=== PATIENT | male | born 1965 | race Caucasian/White ===

== ENCOUNTER 2021-04-13 14:30 | Outpatient (CLI) | payer MEDICARE, SELFPAY ==
--- NOTE | ~2021-04-13 | CT_ITS ---
EXAMINATION: CT lung screening DATE: 04/13/2021 15:16 INDICATION: Z72.0 - Tobacco use TECHNIQUE: Computed tomography (CT) of the chest was performed without intravenous contrast. Addition al 3D reconstructions utilizing coronal maximum intensity projection (MIP) were performed. Automated exposure control and iterative reconstruction technique were employed. The dose-length product was 81 .85 mGy-cm. COMPARISON: None FINDINGS: Moderate upper lobe predominant emphysema. A few thin linear bands of discoid atelectasis in the righ t upper, right middle and bilateral lower lobes. Couple tiny calcified nodules in the lateral upper l obes. No other suspicious pulmonary nodules. No pneumonia, pulmonary edema or pleural effusion. Heart size is normal. No pericardial effusion. Thoracic aorta is normal in caliber. No pathologically enla rged thoracic lymphadenopathy. 1.7 cm cyst at the upper pole of the right kidney. Suture line along w hat is likely the transverse colon. Moderate thoracic spondylosis with chronic appearing mild anterio r wedging of a few mid and lower thoracic vertebral bodies. IMPRESSION: 1. Lung-RADS category 1: Negative. Continue annual screening with noncontrast low-dose chest CT in 12 months. 2. Moderate emphysema. Reviewed, dictated and finalized at location B. IMPRESSION: 1. Lung-RADS category 1: Negative. Continue annual screening with noncontrast l ow-dose chest CT in 12 months. 2. Moderate emphysema.
== END 2021-04-13 14:31 | disposition home or self-care (01) ==
PROVIDERS: PCP Internal Medicine; Visit Provider Nurse Practitioner
DX: Z12.2 Encounter for screening for malignant neoplasm of respiratory organs (principal); Z87.891 Personal history of nicotine dependence; J43.9 Emphysema, unspecified
CPT/HCPCS: 71271

== ENCOUNTER → 2022-10-25 08:41 | Outpatient (CLI) | payer MEDICARE, SELFPAY ==
--- NOTE | ~2022-10-25 | XR_ITS ---
XR thoracic spine 3V DATE: 10/25/2022 09:01 INDICATION: Mid back pain. No recent injury. TECHNIQUE: AP, lateral, swimmer views COMPARISON: 04/13/2021 CT lung screening FINDINGS: There is chronic mild loss of height and anterior wedging of T9, stable since 04/13/2021. Minimal levoscoliosis of the thoracic spine. No recent fracture or dislocation or bone destruction. T he thoracic pedicles are intact. No paraspinal soft tissue thickening. Multilevel degenerative disc disease of the cervical spine IMPRESSION: Degenerative changes of cervical and thoracic spine Chronic mild anterior wedging and loss of height of T9, stable since 04/13/2021 Reviewed, dictated and finalized at location L. [facility]
--- NOTE | ~2022-10-25 | XR_ITS ---
EXAM: XR knee RT 3V DATE: 10/25/2022 09:00 HISTORY: no injury medial right knee pain . COMPARISON: None available. FINDINGS: Normal mineralization. No fracture or dislocation. No lytic or blastic lesion. Mild medial joint space narrowing, with subchondral sclerosis. Medial, patellofemoral, and tibial spine osteophy tosis. No erosion or periosteal change. Soft tissues within normal limits. Small volume joint fluid. IMPRESSION: Mild right knee osteoarthritis, most pronounced in the medial compartment. Small right kn ee joint effusion. Reviewed, dictated and finalized at location K. [facility] IMPRESSION: Mild right knee osteoarthritis, most pronounced in the medial odessa rtment. Small right knee joint effusion.
== END ==
PROVIDERS: PCP Internal Medicine; Visit Provider Clinical Nurse Specialist
DX: M17.11 Unilateral primary osteoarthritis, right knee (principal); M51.34 Other intervertebral disc degeneration, thoracic region
CPT/HCPCS: 72072; 73562

== ENCOUNTER 2022-11-02 08:14 | Outpatient (CLI) | payer MEDICARE, SELFPAY ==
--- NOTE | ~2022-11-02 | MR_ITS ---
EXAMINATION: MR thoracic spine wo con DATE: 11/02/2022 08:50 INDICATION: Chronic thoracic back pain with more recent mid back pain radiating down the back post fa ll 3 months prior TECHNIQUE: Magnetic resonance imaging (MRI) of the thoracic spine was performed without intravenous c ontrast. Sagittal localizer T1-weighted FSE of the cervicothoracic spine was obtained. Thoracic spine sequences included sagittal T2-weighted FSE, sagittal T1-weighted SE, Sagittal T2-weighted FS FSE, a nd axial T2-weighted FSE. COMPARISON: None FINDINGS: Alignment is normal.Mild anterior wedging with <20% anterior vertebral body height loss at T7-T9 and at T11. There is linear low signal intensity with surrounding edema consistent with a relatively rece nt compression fracture underlying the anterior half of the superior endplate of T9. Multiple Schmorl 's nodes throughout the thoracic spine at several levels with associated fibrofatty degenerative endp late changes. Moderate disc height loss at T6-T7, T9-T10 and T10-T11. Mild disc height loss at T3-T4, T4-T5, T7-T8 and T8-T9. Annular fissure and disc bulges resulting in mild central canal stenosis at C7-T1. Significant smaller disc protrusions at several levels in the upper to mid thoracic spine with out significant associated central canal stenosis. Multilevel bilateral mild thoracic facet osteoarth ritis which continues to mild neural foraminal stenosis bilaterally at T8-T9 through T10-T11 and mini ghazala on the right at T11-T12. There is normal spinal cord signal. The conus terminates at L1. Emphys giovani. Bullous changes at the apices. A couple subcentimeter cysts in the right hepatic lobe and right kidney. Paravertebral soft tissues are otherwise unremarkable. IMPRESSION: 1. Recent compression fracture underlying the anterior superior endplate of T9 with <20% anterior fanny tebral body height loss. 2. Moderate thoracic spondylosis with a few additional chronic mild compression fractures. Reviewed, dictated and finalized at location A. IMPRESSION: 1. Recent compression fracture underlying the anterior superior endplate of T9 with <20% anterior vertebral body height loss. 2. Moderate thoracic spondylosis with a few additional chronic mild compression fractures.
== END 2022-11-02 08:15 ==
LOC: GOSHIMG 08:15
PROVIDERS: PCP Internal Medicine; Visit Provider Clinical Nurse Specialist
DX: M47.894 Other spondylosis, thoracic region (principal); S22.070A Wedge compression fracture of T9-T10 vertebra, initial encounter for closed fracture; X58.XXXA Exposure to other specified factors, initial encounter
CPT/HCPCS: 72146

== ENCOUNTER 2024-06-18 00:06 | Emergency (ER) | payer MEDICARE, SELFPAY ==
[2024-06-18 00:06] VITALS: BP 107/60; PULSE 83; RESP 16; TEMP 36.4; O2SAT 98
[2024-06-18 04:28] VITALS: BP 120/80; PULSE 78; RESP 14; O2SAT 100
--- NOTE | 2024-06-18 05:26 | ED.GENADULT ---
HPI - General Adult General Chief complaint: Epistaxis Stated complaint: bilateral nose bleed Time Seen by Provider: 06/18/24 05:19 History of Present Illness HPI narrative: Patient is a 58-year-old gentleman who presents emergency department with chief complaint of nose bleeds. Patient reports morning around 5:00 a.m. in the morning started having episodes of bleeding from his nostrils. Patient reports no trauma reports that he does not use CPAP reports he is not on any blood thinners. The patient reports the bleeding has stopped since he has arrived to the emergency department. Related Data Home Medications Medication Instructions Recorded Confirmed cannabidiol 100 mg/mL oral solution PO ONCE 09/30/20 10/25/22 Allergies Allergy/AdvReac Type Severity Reaction Status Date / Time codeine Allergy Unknown Vomiting Verified 12/05/22 09:53 Review of Systems Review of Systems: A 10 system review of systems was completed on the patient and is negative except for what is stated in the HPI. Nursing and ancillary documentation was reviewed. [facility] Past Medical History Medical History Crohn's disease Elevated PSA Hx of avascular necrosis of capital femoral epiphysis Surgical History Surgical History History of right hip replacement Family History Family History Grandparent Family history of malignant neoplasm of testis Social History Social History Smoking status: Heavy tobacco smoker Alcohol intake: current Lack of Transportation: No Lack of Food: Never True Current Housing: I Have Housing Concerned About Future Housing: No Difficulty Paying Gas/Electric Bills: No Difficulty Paying for Meds: No Currently Unemployed: No Education: High School Diploma/GED Difficulty w/ Childcare or Family Care: No Exam Narrative: GENERAL: Well-appearing, well-nourished, and in no acute distress. HEAD: Normocephalic, atraumatic. EYES: PERRLA and EOMI. ENT: Nares clear, no rhinorrhea or epistaxis. Mucous membranes moist. No active bleeding in the nostrils NECK: Supple. CHEST: Clear to auscultation. No respiratory distress. HEART: Regular rate and rhythm. No murmur heard. Normal peripheral pulses. ABDOMEN: Soft, nontender, nondistended, normal active bowel sounds. EXTREMITIES: Normal range of motion. No edema. SKIN: Warm, dry, no rash. NEURO: No focal deficits. Alert and oriented x3. PSYCH: Normal mood and affect. Course Vital Signs Vital signs: Vital Signs Temperature 36.4 C L 06/18/24 00:06 Pulse Rate 83 06/18/24 00:06 Respiratory Rate 16 06/18/24 00:06 Blood Pressure 107/60 06/18/24 00:06 Pulse Oximetry 98 06/18/24 00:06 Oxygen Delivery Room Air 06/18/24 00:06 Temperature 36.4 C L 06/18/24 00:06 Pulse Rate 78 06/18/24 04:28 Respiratory Rate 14 06/18/24 04:28 Blood Pressure 120/80 06/18/24 04:28 Pulse Oximetry 100 06/18/24 04:28 Oxygen Delivery Room Air 06/18/24 00:06 Medical Decision Making MDM Narrative Medical decision making narrative: Differential diagnosis includes epistaxis, hypertension, On exam the patient had no active bleeding at this time and no site that needed to be car breast. This time packing was not required the patient was given a spray of phenylephrine in each nostril at instructed to methods to control epistaxis if it develops again and also methods to reduce the chance of bleeding at home. Vital Signs Vital Signs: Vital Signs Temperature 36.4 C L 06/18/24 00:06 Pulse Rate 83 06/18/24 00:06 Respiratory Rate 16 06/18/24 00:06 Blood Pressure 107/60 06/18/24 00:06 Pulse Oximetry 98 06/18/24 00:06 Oxygen Delivery Room Air 06/18/24 00:06 Temperature 36.4 C L 06/18/24 00:06 Pulse Rate 78 06/18/24 04:28 Respiratory Rate 14 06/18/24 04:28 Blood Pressure 120/80 06/18/24 04:28 Pulse Oximetry 100 06/18/24 04:28 Oxygen Delivery Room Air 06/18/24 00:06 Discharge Plan Discharge Clinical Impression: Epistaxis Patient Disposition: Home, Self-Care Condition: Stable Instructions: Antibiotic Form, Nosebleed (ED) Prescriptions: No Action cannabidiol 100 mg/mL solution PO ONCE Follow-up/Referrals: Raghu Acosta DO [Primary Care Provider] - Time of Disposition: 05:29
[2024-06-18] MEDS: PHENYLEPHRINE 1% NA SPR (*BKC) 15 ML BTL 1 SPRAY NASAL (05:46)
== END 2024-06-18 06:26 | disposition home or self-care (01) ==
LOC: ANHED 05:35
PROVIDERS: Emergency Provider Emergency Medicine; PCP Internal Medicine
DX: R04.0 Epistaxis (principal); K50.90 Crohn's disease, unspecified, without complications; Z96.641 Presence of right artificial hip joint; F17.200 Nicotine dependence, unspecified, uncomplicated
CPT/HCPCS: 99283; A9270

== ENCOUNTER 2024-06-20 13:14 | Emergency (ER) | payer MEDICARE, SELFPAY ==
[2024-06-20 13:28] VITALS: BP 100/74; PULSE 100; RESP 18; TEMP 36.7; O2SAT 100
--- NOTE | 2024-06-20 15:31 | ED.EPISTAXIS ---
HPI - Epistaxis General Chief complaint: Epistaxis <Melida Cote PA-C - Last Filed: 06/21/24 11:48> Stated complaint: epistaxis <Melida Cote PA-C - Last Filed: 06/21/24 11:48> Time Seen by Provider: 06/20/24 15:31 <Melida Cote PA-C - Last Filed: 06/21/24 11:48> Focused HPI: This is a 58 year old male that presents to the ER for nosebleed ongoing since last night. Reports he has been having trouble with this over the last couple of days intermittently. Was seen in the ER here for this and it had stopped before he was evaluated. No blood thinners. GENERAL: Well-appearing, well-nourished, and in no acute distress. HEAD: Normocephalic, atraumatic. CHEST: Clear to auscultation. ?No respiratory distress. HEART: Regular rate and rhythm.? NEURO: ?Alert and oriented x3. Patient screened in triage and initial orders placed.? ?Additional care and disposition to be based upon?diagnostic testing and treatment. <Melida Cote PA-C - Last Filed: 06/21/24 11:48> History of Present Illness HPI Narrative: 58-year-old male presenting with nosebleed. States that he was here few days ago with a nose bleed. His bleeding stopped and he was able to go home. He called his PCP to try to get an appointment with an Ear Nose Throat specialist but they told him that there ENT is gone right now. Last night the bleeding reoccurred. States that it will improve temporarily with pressure but then it comes back. He is concerned that he has lost too much blood. No recent trauma. Not on blood thinners. <Verenice Marrero MD - Last Filed: 06/24/24 16:52> Related Data Home medications: Home Medications Medication Instructions Recorded Confirmed cannabidiol 100 mg/mL oral solution PO ONCE 09/30/20 10/25/22 <Melida Cote PA-C - Last Filed: 06/21/24 11:48> Allergies/adverse reactions: Allergies Allergy/AdvReac Type Severity Reaction Status Date / Time codeine Allergy Unknown Vomiting Verified 12/05/22 09:53 <Melida Cote PA-C - Last Filed: 06/21/24 11:48> Review of Systems Review of Systems: All systems reviewed & are unremarkable except as noted in HPI and below <Verenice Marrero MD - Last Filed: 06/24/24 16:52> [facility] Past Medical History Medical History: Medical History Crohn's disease Elevated PSA Hx of avascular necrosis of capital femoral epiphysis <Melida Cote PA-C - Last Filed: 06/21/24 11:48> Surgical History Surgical History: Surgical History History of right hip replacement <Melida Cote PA-C - Last Filed: 06/21/24 11:48> Family History Family History: Family History Grandparent Family history of malignant neoplasm of testis <Melida Cote PA-C - Last Filed: 06/21/24 11:48> Social History Social History: Social History Smoking status: Heavy tobacco smoker Alcohol intake: current Lack of Transportation: No Lack of Food: Never True Current Housing: I Have Housing Concerned About Future Housing: No Difficulty Paying Gas/Electric Bills: No Difficulty Paying for Meds: No Currently Unemployed: No Education: High School Diploma/GED Difficulty w/ Childcare or Family Care: No <Melida Cote PA-C - Last Filed: 06/21/24 11:48> Exam Narrative: GENERAL: Well-appearing, In no acute distress, pleasant cooperative HEAD: Normocephalic, atraumatic. EYES: PERRLA and EOMI. ENT: Mucous membranes moist. no active epistaxis, nasal mucosa is erythematous bilaterally NECK: Supple. CHEST: No respiratory distress. HEART: Regular rate and rhythm EXTREMITIES: Normal range of motion SKIN: Warm, dry, no rash. NEURO: Alert and oriented x3. PSYCH: Normal mood and affect. <Verenice Marrero MD - Last Filed: 06/24/24 16:52> Course Vital Signs Vital signs: Vital Signs Temperature 98.1 F 06/20/24 13:28 Pulse Rate 100 06/20/24 13:28 Respiratory Rate 18 06/20/24 13:28 Blood Pressure 100/74 06/20/24 13:28 Pulse Oximetry 100 06/20/24 13:28 Temperature 98.2 F 06/20/24 20:09 Pulse Rate 71 06/20/24 20:09 Respiratory Rate 15 06/20/24 20:09 Blood Pressure 130/76 06/20/24 20:09 Pulse Oximetry 98 06/20/24 20:09 <Melida Cote PA-C - Last Filed: 06/21/24 11:48> Vital Signs Temperature 98.1 F 06/20/24 13:28 Pulse Rate 100 06/20/24 13:28 Respiratory Rate 18 06/20/24 13:28 Blood Pressure 100/74 06/20/24 13:28 Pulse Oximetry 100 06/20/24 13:28 Temperature 98.2 F 06/20/24 20:09 Pulse Rate 71 06/20/24 20:09 Respiratory Rate 15 06/20/24 20:09 Blood Pressure 130/76 06/20/24 20:09 Pulse Oximetry 98 06/20/24 20:09 <Verenice Marrero MD - Last Filed: 06/24/24 16:52> MDM - Epistaxis MDM Narrative Medical decision making narrative: 58-year-old male presenting with epistaxis. Vitals are stable. Exam remarkable for the above. Both of his nares have been packed with Afrin-soaked cotton balls prior to my evaluation. I removed these in his epistaxis has resolved. Blood work without significant abnormalities. He is not significantly anemic. He has been observed for several hours and has not had recurrence of epistaxis. He has Afrin at home, advised that he not use this longer than 3 days total. Advised that he start using some [place] spray to keep his nasal mucosa moist. Recommend close ENT follow-up. Appropriate return precautions given. Patient is agreeable this plan. Discharged in stable condition. <Verenice Marrero MD - Last Filed: 06/24/24 16:52> Differential Diagnosis Differential diagnosis: Likely anterior epistaxis and posterior epistaxis <Verenice Marrero MD - Last Filed: 06/24/24 16:52> Medical Records Attestation: I reviewed the patient's medical records. <Verenice Marrero MD - Last Filed: 06/24/24 16:52> Lab Data Attestation: I reviewed the patient's lab results. <Verenice Marrero MD - Last Filed: 06/24/24 16:52> Result diagrams: 06/20/24 15:46 <Melida Cote PA-C - Last Filed: 06/21/24 11:48> Labs: Lab Results 06/20/24 Range/Units 15:46 WBC 8.8 (4.5-10.0) K/mm3 RBC 3.85 L (4.6-6.20) M/mm3 Hgb 13.1 L (14.0-18.0) g/dL Hct 38.3 L (42.0-52.0) % MCV 99.5 (80-100) fl MCH 34.0 (26-34) pg MCHC 34.2 (32-36) g/dl RDW 12.4 (11.5-14.5) % Plt Count 167 (150-375) k/mm3 MPV 10.6 H (7.4-10.4) fl Immature Gran % (Auto) 0.6 H (0-0.5) % Neut % (Auto) 68.0 (45.5-73.1) % Lymph % (Auto) 24.5 (18.3-44.2) % [place] % (Auto) 6.5 (2.6-8.5) % Eos % (Auto) 0.2 (0-4.4) % Baso % (Auto) 0.2 (0.2-1.2) % Lymph # (Auto) 2.15 (0.9-3.2) K/mm3 [place] # (Auto) 0.6 (0.1-0.6) K/mm3 Eos # (Auto) 0.0 (0-0.3) K/mm3 Baso # (Auto) 0.0 (0.0-0.1) K/mm3 Abs Immat Gran (auto) 0.05 H (0.00-0.031) K/mm3 Absolute Neuts (auto) 6.0 (1.3-6.7) K/mm3 Absolute Nucleated RBC 0.000 (0.0-0.012) K/mm3 Nucleated RBC % 0.0 (0.0-0.2) % PT 13.6 (11.1-14.7) Seconds INR 1.0 APTT 29.0 (22.3-36.8) Seconds <Melida Cote PA-C - Last Filed: 06/21/24 11:48> Lab Results 06/20/24 Range/Units 15:46 WBC 8.8 (4.5-10.0) K/mm3 RBC 3.85 L (4.6-6.20) M/mm3 Hgb 13.1 L (14.0-18.0) g/dL Hct 38.3 L (42.0-52.0) % MCV 99.5 (80-100) fl MCH 34.0 (26-34) pg MCHC 34.2 (32-36) g/dl RDW 12.4 (11.5-14.5) % Plt Count 167 (150-375) k/mm3 MPV 10.6 H (7.4-10.4) fl Immature Gran % (Auto) 0.6 H (0-0.5) % Neut % (Auto) 68.0 (45.5-73.1) % Lymph % (Auto) 24.5 (18.3-44.2) % [place] % (Auto) 6.5 (2.6-8.5) % Eos % (Auto) 0.2 (0-4.4) % Baso % (Auto) 0.2 (0.2-1.2) % Lymph # (Auto) 2.15 (0.9-3.2) K/mm3 [place] # (Auto) 0.6 (0.1-0.6) K/mm3 Eos # (Auto) 0.0 (0-0.3) K/mm3 Baso # (Auto) 0.0 (0.0-0.1) K/mm3 Abs Immat Gran (auto) 0.05 H (0.00-0.031) K/mm3 Absolute Neuts (auto) 6.0 (1.3-6.7) K/mm3 Absolute Nucleated RBC 0.000 (0.0-0.012) K/mm3 Nucleated RBC % 0.0 (0.0-0.2) % PT 13.6 (11.1-14.7) Seconds INR 1.0 APTT 29.0 (22.3-36.8) Seconds <Verenice Marrero MD - Last Filed: 06/24/24 16:52> Critical Care Time Critical Care Time Critical Care Time: No <Melida Cote PA-C - Last Filed: 06/21/24 11:48> Discharge Plan Discharge Clinical Impression: Epistaxis <Melida Cote PA-C - Last Filed: 06/21/24 11:48> Patient Disposition: Home, Self-Care <Melida Cote PA-C - Last Filed: 06/21/24 11:48> Condition: Stable <Melida Cote PA-C - Last Filed: 06/21/24 11:48> Instructions: Antibiotic Form, Nosebleed (ED) <Melida Cote PA-C - Last Filed: 06/21/24 11:48> Additional Instructions: Your blood work today is stable. Please follow-up closely with Ear Nose Throat specialists at the numbers below. If your symptoms worsen or other concerning symptoms arise, please return to the ER. [facility]: [phone]; ask for ENT appt for recurrent nosebleeds. <Melida Cote PA-C - Last Filed: 06/21/24 11:48> Prescriptions: No Action cannabidiol 100 mg/mL solution PO ONCE <Melida Cote PA-C - Last Filed: 06/21/24 11:48> Follow-up/Referrals: Erlin Lozoya MD [Physician] - Raghu Acosta DO [Primary Care Provider] - <Melida Cote PA-C - Last Filed: 06/21/24 11:48>
[2024-06-20 15:53] LABS: Basophils Percent Auto 0.2 % (0.2-1.2); Eosinophils Percent Auto 0.2 % (0-4.4); Hematocrit 38.3 % (42.0-52.0); Hemoglobin 13.1 g/dL (14.0-18.0); Immature Granulocyte Absolute 0.05 K/mm3 (0.00-0.031); Immature Granulocyte Percent A 0.6 % (0-0.5); Lymphocytes Absolute Auto 2.15 K/mm3 (0.9-3.2); Lymphocytes Percent Auto 24.5 % (18.3-44.2); Mean Corpuscular HGB Conc 34.2 g/dl (32-36); Mean Corpuscular Volume 99.5 fl (80-100); Mean Platelet Volume 10.6 fl (7.4-10.4); Monocytes Absolute Auto 0.6 K/mm3 (0.1-0.6); Monocytes Percent Auto 6.5 % (2.6-8.5); Platelet Count Result 167 k/mm3 (150-375); Red Blood Count 3.85 M/mm3 (4.6-6.20); Red Cell Distribution Width 12.4 % (11.5-14.5); White Blood Count 8.8 K/mm3 (4.5-10.0)
[2024-06-20 16:03] LABS: Prothrombin Time 13.6 Seconds (11.1-14.7)
[2024-06-20 20:09] VITALS: BP 130/76; PULSE 71; RESP 15; TEMP 36.8; O2SAT 98
== END 2024-06-20 20:10 | disposition home or self-care (01) ==
PROVIDERS: Physician Assistant; Emergency Provider Emergency Medicine; PCP Internal Medicine
DX: R04.0 Epistaxis (principal); K50.90 Crohn's disease, unspecified, without complications; F17.200 Nicotine dependence, unspecified, uncomplicated
CPT/HCPCS: 30901; 36415; 85025; 85610; 85730; 99283; A9270

== ENCOUNTER 2024-06-20 20:58 | Emergency (ER) | payer MEDICARE, SELFPAY ==
[2024-06-20 21:00] VITALS: BP 148/79; PULSE 100; RESP 18; TEMP 36.9; O2SAT 97
[2024-06-21 00:30] VITALS: BP 76/58; PULSE 133; RESP 20; TEMP 35.1
[2024-06-21 01:08] LABS: Basophils Percent Auto 0.2 % (0.2-1.2); Eosinophils Percent Auto 0.2 % (0-4.4); Hematocrit 32.4 % (42.0-52.0); Hemoglobin 11.2 g/dL (14.0-18.0); Immature Granulocyte Absolute 0.06 K/mm3 (0.00-0.031); Immature Granulocyte Percent A 0.5 % (0-0.5); Lymphocytes Absolute Auto 2.02 K/mm3 (0.9-3.2); Lymphocytes Percent Auto 18.3 % (18.3-44.2); Mean Corpuscular HGB Conc 34.6 g/dl (32-36); Mean Corpuscular Hemoglobin 34.6 pg (26-34); Mean Platelet Volume 10.7 fl (7.4-10.4); Monocytes Absolute Auto 0.7 K/mm3 (0.1-0.6); Monocytes Percent Auto 6.2 % (2.6-8.5); Neutrophils Absolute Auto 8.3 K/mm3 (1.3-6.7); Neutrophils Percent Auto 74.6 % (45.5-73.1); Platelet Count Result 174 k/mm3 (150-375); Red Blood Count 3.24 M/mm3 (4.6-6.20); Red Cell Distribution Width 12.4 % (11.5-14.5); White Blood Count 11.1 K/mm3 (4.5-10.0)
[2024-06-21 01:18] LABS: Anion Gap 10 mmol/L (4-12); Blood Urea Nitrogen 28 mg/dL (9-20); Calcium 8.6 mg/dL (8.4-10.2); Carbon Dioxide 24 mmol/L (22-30); Chloride 103 mmol/L (98-107); Estimated CRCL calculation 62 ml/min; Estimated Glomerular Filt Rate > 60; Glucose 213 mg/dL (65-110); Potassium 3.9 mmol/L (3.4-5.0); Sodium 137 mmol/L (137-145)
[2024-06-21 01:24] LABS: INR 1.2; Prothrombin Time 15.2 Seconds (11.1-14.7)
[2024-06-21 01:25] LABS: Partial Thromboplastin Time 25.5 Seconds (22.3-36.8)
[2024-06-21 02:28] VITALS: BP 128/82; PULSE 84; RESP 15; O2SAT 98
[2024-06-21 03:15] VITALS: BP 124/86; PULSE 81; RESP 15; O2SAT 100
--- NOTE | 2024-06-21 03:41 | ED.EPISTAXIS ---
HPI - Epistaxis General Chief complaint: Epistaxis Stated complaint: nose bleed Time Seen by Provider: 06/21/24 00:35 History of Present Illness HPI Narrative: Patient had been seen earlier here today for nose bleed, have her watch for multiple hours without we bleeding and been discharged, 30 minutes after he left he started having nosebleed again where he states that he swallowed lots of blood, and came back to the emergency room. He states that he is feeling lightheaded and has swallow lots of blood Related Data Home Medications Medication Instructions Recorded Confirmed cannabidiol 100 mg/mL oral solution PO ONCE 09/30/20 10/25/22 Allergies Allergy/AdvReac Type Severity Reaction Status Date / Time codeine Allergy Unknown Vomiting Verified 12/05/22 09:53 [facility] Past Medical History Medical History Crohn's disease Elevated PSA Hx of avascular necrosis of capital femoral epiphysis Surgical History Surgical History History of right hip replacement Family History Family History Grandparent Family history of malignant neoplasm of testis Social History Social History Smoking status: Heavy tobacco smoker Alcohol intake: current Lack of Transportation: No Lack of Food: Never True Current Housing: I Have Housing Concerned About Future Housing: No Difficulty Paying Gas/Electric Bills: No Difficulty Paying for Meds: No Currently Unemployed: No Education: High School Diploma/GED Difficulty w/ Childcare or Family Care: No Exam Narrative: EXAMINATION OF ORGAN SYSTEMS/BODY AREAS: Constitutional: Vital signs per nursing GENERAL:[No acute distress, non-toxic appearing.] HEAD: Normal with no signs of head trauma. EYES: EOMI, conjunctiva normal ENT: Some bloody tissue stuffed into right nare LUNGS: Nonlabored breathing. HEART: [Regular rate and rhythm] ABD: [Soft], [nontender to palpation] EXT: Normal range of motion SKIN: [No rashes or lesions.] NEURO: [Alert and oriented x 3. No gross focal sensory or strength deficits.] PSYCH: Normal affect Course Vital Signs Vital signs: Vital Signs Temperature 98.5 F 06/20/24 21:00 Pulse Rate 100 06/20/24 21:00 Respiratory Rate 18 06/20/24 21:00 Blood Pressure 148/79 H 06/20/24 21:00 Pulse Oximetry 97 06/20/24 21:00 Oxygen Delivery Room Air 06/20/24 21:00 Temperature 95.1 F L 06/21/24 00:30 Pulse Rate 81 06/21/24 03:15 Respiratory Rate 15 06/21/24 03:15 Blood Pressure 124/86 06/21/24 03:15 Pulse Oximetry 100 06/21/24 03:15 Oxygen Delivery Room Air 06/20/24 21:00 Procedures Epistaxis Control right: Epistaxis Control Date: 06/21/24 Nose Prepped With: lidocaine, oxymetazoline and other (TXA) Direct Inspection: yes and unable to visualize Clots Removed by: blowing nose Device Inserted: hemostatic balloon Device Size: 5 Patient Tolerated Procedure: well and no complications MDM - Epistaxis MDM Narrative Medical decision making narrative: patient presents with complaint of nosebleed, had been seen earlier for the same, had stopped bleeding the patient had been observed for many hours however it did restart. He is overall well-appearing here with normal vital signs, hemoglobin here does show a drop of 2 points so I did opt/ offered to go ahead and insert rhino rocket so that we can have definitive control of her bleeding. Patient agreeable to this plan. See procedure note. Follow-up to ENT provided with strict return precautions and instructions Lab Data 06/21/24 00:57 06/21/24 00:57 Labs: Lab Results 06/21/24 Range/Units 00:57 WBC 11.1 H (4.5-10.0) K/mm3 RBC 3.24 L (4.6-6.20) M/mm3 Hgb 11.2 L (14.0-18.0) g/dL Hct 32.4 L (42.0-52.0) % MCV 100.0 (80-100) fl MCH 34.6 H (26-34) pg MCHC 34.6 (32-36) g/dl RDW 12.4 (11.5-14.5) % Plt Count 174 (150-375) k/mm3 MPV 10.7 H (7.4-10.4) fl Immature Gran % (Auto) 0.5 (0-0.5) % Neut % (Auto) 74.6 H (45.5-73.1) % Lymph % (Auto) 18.3 (18.3-44.2) % [place] % (Auto) 6.2 (2.6-8.5) % Eos % (Auto) 0.2 (0-4.4) % Baso % (Auto) 0.2 (0.2-1.2) % Lymph # (Auto) 2.02 (0.9-3.2) K/mm3 [place] # (Auto) 0.7 H (0.1-0.6) K/mm3 Eos # (Auto) 0.0 (0-0.3) K/mm3 Baso # (Auto) 0.0 (0.0-0.1) K/mm3 Abs Immat Gran (auto) 0.06 H (0.00-0.031) K/mm3 Absolute Neuts (auto) 8.3 H (1.3-6.7) K/mm3 Absolute Nucleated RBC 0.000 (0.0-0.012) K/mm3 Nucleated RBC % 0.0 (0.0-0.2) % PT 15.2 H (11.1-14.7) Seconds INR 1.2 APTT 25.5 (22.3-36.8) Seconds Sodium 137 (137-145) mmol/L Potassium 3.9 (3.4-5.0) mmol/L Chloride 103 (98-107) mmol/L Carbon Dioxide 24 (22-30) mmol/L Anion Gap 10 (4-12) mmol/L BUN 28 H (9-20) mg/dL Creatinine 1.00 (0.7-1.3) mg/dL Estim Creat Clear Calc 62 ml/min Estimated GFR > 60 (59 - ) Glucose 213 H (65-110) mg/dL Calcium 8.6 (8.4-10.2) mg/dL Discharge Plan Discharge Clinical Impression: Epistaxis Patient Disposition: Home, Self-Care Condition: Stable Instructions: Nosebleed (ED) Additional Instructions: please call the ENT office as soon as possible to schedule an appointment for tomorrow for removal of the nasal packing. If you are unable to get in to see someone in the next 1-3 days, come back to the emergency room to have the packing removed. You can always return to the emergency room for any further issues. Prescriptions: No Action cannabidiol 100 mg/mL solution PO ONCE Follow-up/Referrals: Raghu Acosta, DO [Primary Care Provider] -
== END 2024-06-21 03:16 | disposition home or self-care (01) ==
PROVIDERS: Emergency Provider Emergency Medicine; PCP Internal Medicine
DX: R04.0 Epistaxis (principal); K50.90 Crohn's disease, unspecified, without complications; Z96.641 Presence of right artificial hip joint; F17.200 Nicotine dependence, unspecified, uncomplicated
CPT/HCPCS: 30901; 36415; 80048; 85025; 85610; 85730; 99283; A9270

== ENCOUNTER 2024-06-28 10:56 | Outpatient (CLI) | payer MEDICARE, SELFPAY ==
[2024-06-28 14:29] LABS: Basophils Percent Auto 0.4 % (0.2-1.2); Eosinophils Percent Auto 0.3 % (0-4.4); Hematocrit 31.5 % (42.0-52.0); Hemoglobin 9.8 g/dL (14.0-18.0); Immature Granulocyte Absolute 0.05 K/mm3 (0.00-0.031); Immature Granulocyte Percent A 0.6 % (0-0.5); Lymphocytes Absolute Auto 1.42 K/mm3 (0.9-3.2); Lymphocytes Percent Auto 15.8 % (18.3-44.2); Mean Corpuscular HGB Conc 31.1 g/dl (32-36); Mean Corpuscular Hemoglobin 33.3 pg (26-34); Mean Corpuscular Volume 107.1 fl (80-100); Mean Platelet Volume 10.9 fl (7.4-10.4); Monocytes Absolute Auto 0.9 K/mm3 (0.1-0.6); Neutrophils Absolute Auto 6.6 K/mm3 (1.3-6.7); Neutrophils Percent Auto 72.9 % (45.5-73.1); Platelet Count Result 271 k/mm3 (150-375); Red Blood Count 2.94 M/mm3 (4.6-6.20); Red Cell Distribution Width 14.7 % (11.5-14.5)
[2024-06-28 15:57] LABS: Alanine Aminotransferase 24 U/L (6-50); Albumin Level 3.7 g/dL (3.5-5.1); Alkaline Phosphatase 67 U/L (38-126); Anion Gap 6 mmol/L (4-12); Aspartate Amino Transferase 32 U/L (17-59); Bilirubin,Total 0.3 mg/dL (0.2-1.3); Blood Urea Nitrogen 7 mg/dL (9-20); Calcium 8.8 mg/dL (8.4-10.2); Carbon Dioxide 27 mmol/L (22-30); Chloride 106 mmol/L (98-107); Estimated Glomerular Filt Rate > 60; Glucose 113 mg/dL (65-110); Potassium 4.2 mmol/L (3.4-5.0); Sodium 139 mmol/L (137-145)
== END 2024-06-28 10:57 | disposition home or self-care (01) ==
PROVIDERS: PCP Internal Medicine; Visit Provider Clinical Nurse Specialist
DX: K50.90 Crohn's disease, unspecified, without complications (principal); D72.829 Elevated white blood cell count, unspecified; F41.9 Anxiety disorder, unspecified; Z12.5 Encounter for screening for malignant neoplasm of prostate; K50.919 Crohn's disease, unspecified, with unspecified complications
CPT/HCPCS: 36415; 80053; 84153; 84443; 85025; G0103

== ENCOUNTER 2024-07-02 10:10 | Outpatient (CLI) | payer MEDICARE, SELFPAY ==
[2024-07-02 14:46] LABS: Basophils Percent Auto 0.3 % (0.2-1.2); Eosinophils Percent Auto 0.4 % (0-4.4); Hemoglobin 10.7 g/dL (14.0-18.0); Immature Granulocyte Absolute 0.07 K/mm3 (0.00-0.031); Immature Granulocyte Percent A 0.8 % (0-0.5); Lymphocytes Absolute Auto 1.35 K/mm3 (0.9-3.2); Lymphocytes Percent Auto 14.5 % (18.3-44.2); Mean Corpuscular HGB Conc 31.5 g/dl (32-36); Mean Corpuscular Hemoglobin 34.1 pg (26-34); Mean Corpuscular Volume 108.3 fl (80-100); Mean Platelet Volume 10.8 fl (7.4-10.4); Monocytes Absolute Auto 0.7 K/mm3 (0.1-0.6); Monocytes Percent Auto 7.5 % (2.6-8.5); Neutrophils Absolute Auto 7.1 K/mm3 (1.3-6.7); Neutrophils Percent Auto 76.5 % (45.5-73.1); Platelet Count Result 262 k/mm3 (150-375); Red Blood Count 3.14 M/mm3 (4.6-6.20); Red Cell Distribution Width 15.2 % (11.5-14.5); Reticulocytes Absolute 0.19 10^6/uL (0.02-0.10); White Blood Count 9.3 K/mm3 (4.5-10.0)
[2024-07-02 15:13] LABS: Immature Reticulocyte Fraction 22.9 % (3.0-15.9); Reticulocyte Hemoglobin Conten 34.1 pg (28.2-36.6); Reticulocyte Percent 6.54 % (0.7-4.3)
[2024-07-02 15:16] LABS: Macrocytosis 1+ (NORMAL); Platelet Estimate Adequate (Adequate); Schistocytes None Seen
[2024-07-02 15:23] LABS: Iron 53 ug/dL (49-181)
[2024-07-02 15:33] LABS: Percent Iron Saturation 15 % (20-50)
== END 2024-07-02 10:11 | disposition home or self-care (01) ==
LOC: ANHGOSHLAB 10:12
PROVIDERS: PCP Internal Medicine; Visit Provider Clinical Nurse Specialist
DX: K50.919 Crohn's disease, unspecified, with unspecified complications (principal); D64.9 Anemia, unspecified; R74.8 Abnormal levels of other serum enzymes
CPT/HCPCS: 36415; 82607; 82728; 82746; 83540; 83550; 85025; 85046

== ENCOUNTER 2024-07-29 13:18 | Outpatient (CLI) | payer MEDICARE, SELFPAY ==
[2024-07-29 19:42] LABS: Basophils Absolute Auto 0.1 K/mm3 (0.0-0.1); Basophils Percent Auto 0.5 % (0.2-1.2); Eosinophils Percent Auto 0.3 % (0-4.4); Hematocrit 42.2 % (42.0-52.0); Hemoglobin 13.7 g/dL (14.0-18.0); Immature Granulocyte Absolute 0.03 K/mm3 (0.00-0.031); Immature Granulocyte Percent A 0.3 % (0-0.5); Lymphocytes Absolute Auto 2.28 K/mm3 (0.9-3.2); Lymphocytes Percent Auto 23.2 % (18.3-44.2); Mean Corpuscular HGB Conc 32.5 g/dl (32-36); Mean Corpuscular Hemoglobin 32.8 pg (26-34); Mean Platelet Volume 11.9 fl (7.4-10.4); Monocytes Absolute Auto 0.6 K/mm3 (0.1-0.6); Monocytes Percent Auto 5.7 % (2.6-8.5); Neutrophils Absolute Auto 6.9 K/mm3 (1.3-6.7); Platelet Count Result 239 k/mm3 (150-375); Red Blood Count 4.18 M/mm3 (4.6-6.20); Red Cell Distribution Width 12.8 % (11.5-14.5); White Blood Count 9.8 K/mm3 (4.5-10.0)
== END 2024-07-29 13:19 | disposition home or self-care (01) ==
LOC: ANHGOSHLAB 13:20
PROVIDERS: PCP Internal Medicine; Visit Provider Clinical Nurse Specialist
DX: D64.9 Anemia, unspecified (principal); D72.829 Elevated white blood cell count, unspecified; E53.8 Deficiency of other specified B group vitamins
CPT/HCPCS: 36415; 82607; 85025

== ENCOUNTER 2024-07-29 14:14 | Outpatient (CLI) | payer MEDICARE, SELFPAY ==
--- NOTE | ~2024-07-29 | XR_ITS ---
EXAM: XR shoulder RT min 2V DATE: 07/29/2024 14:37 HISTORY: M25.519 - Pain in unspecified shoulder . COMPARISON: None available. FINDINGS: Normal mineralization. No fracture or dislocation. No lytic or blastic lesion. Moderate de generative change at the AC joint. Mild degenerative change at the glenohumeral joint. No erosion or periosteal change. Soft tissues within normal limits. IMPRESSION: Polyarticular right shoulder osteoarthritis. Reviewed, dictated and finalized at location K. [facility]
== END 2024-07-29 14:15 | disposition home or self-care (01) ==
LOC: GOSHIMG 14:15
PROVIDERS: PCP Internal Medicine; Visit Provider Internal Medicine
DX: M19.011 Primary osteoarthritis, right shoulder (principal)
CPT/HCPCS: 73030

== ENCOUNTER 2024-09-16 13:00 | Outpatient (RCR) | payer MEDICARE, SELFPAY ==
--- NOTE | 2024-08-15 14:39 | OPREHPOC ---
Outpatient Therapy Plan of Care This is a Multidisciplinary Plan of Care that may contain components documented by all disciplines (PT, OT, and ST.) PT Problem 1 PT Problem #1 Knowledge Deficit PT Goal 1 Goal / Goal Update [place] with HEP Target Visit 4 PT Goal 2 Goal / Goal Update Report pain no greater than 2/10 for 2 consecutive weeks Target Visit 8 PT Problem 2 PT Problem #2 Impaired Range of Motion PT Goal 1 Goal / Goal Update 1. Achieve 170 degrees of shoulder flexion without pain for improved functional reach Target Visit 8 PT Problem 3 PT Problem #3 Impaired Strength PT Goal 1 Goal / Goal Update 1. Improve R shoulder flexion strength to 4+/5 to improve active lifting function of shoulder 2. Improve R shoulder external rotation strength to 4+/5 to improve stabilization of humeral head to reduce shoulder impingement symptoms Target Visit 8
--- NOTE | 2024-08-15 14:40 | PTOPEVAL1 ---
Assessment and note entered by Chino Salmon, PT Evaluation Information Assessment Status Evaluation Diagnosis Right shoulder trauma ICD-10 Condition Codes (PT) Pain in right shoulder M25.511 Onset June 2024 Subjective Information Reports that he had a fall into a wall and injured his right shoulder. Pain is mostly in the shoulder but he has pain in elbow as well. He is left handed but uses his right hand for a lot. Shoulder is aching at night and he has trouble putting pressure into it. He gets increased soreness with any progressive shoulder use. Reported Pain Level Pain Score 7: Self Report Assessment PT Clinical Summary Patient presents with signs and symptoms consistent with shoulder impingement and shoulder instability. At this point, strength appears suitable enough to rule out major rotator cuff tear, but indications of impingement are present with likely tendonitis. Patient will benefit form skilled therapy to address these deficits for [facility]ent[facility] strengthening and stabilization of shoulder. Plan of Care Interventions Electrical Stimulation,Hot Pack/Cold Pack,Manual Therapy,Neuro Re-education,Therapeutic Activities, Therapeutic Exercise Treatment Frequency and 2x/week for 8 visits Duration These treatments will address the objective and functional deficits as defined above. The patient will be advanced safely and appropriately in order for the patient to progress towards his/her prior level of function. Additional exercises will be introduced and as well as a comprehensive home exercise program upon discharge, if needed, ?to ensure carryover of functional gains achieved in the clinic. This treatment plan has been reviewed and agreement upon by the patient.
--- NOTE | 2024-09-16 13:53 | OPREHPOC ---
Outpatient Therapy Plan of Care This is a Multidisciplinary Plan of Care that may contain components documented by all disciplines (PT, OT, and ST.) PT Problem 1 PT Problem #1 Knowledge Deficit PT Goal 1 Goal / Goal Update [place] with HEP Target Visit 4 Progress Met PT Goal 2 Goal / Goal Update Report pain no greater than 2/10 for 2 consecutive weeks Target Visit 12 Progress Not Met PT Problem 2 PT Problem #2 Impaired Range of Motion PT Goal 1 Goal / Goal Update 1. Achieve 170 degrees of shoulder flexion without pain for improved functional reach Target Visit 8 Progress Met PT Problem 3 PT Problem #3 Impaired Strength PT Goal 1 Goal / Goal Update 1. Improve R shoulder flexion strength to 4+/5 to improve active lifting function of shoulder 2. Improve R shoulder external rotation strength to 4+/5 to improve stabilization of humeral head to reduce shoulder impingement symptoms Target Visit 12 Progress Partially Met
--- NOTE | 2024-09-16 13:53 | PTOPPROG ---
Assessment and note entered by Chino Salmon, PT Evaluation Information Assessment Status Progress Diagnosis Right shoulder trauma ICD-10 Condition Codes (PT) Pain in right shoulder M25.511 Onset June 2024 Subjective Information Reports that he feels progress has been very slow if any. Still getting a lot of clicking and instability noted in shoulder. He has asked about the potential of receiving a cortisone injection as he has had family members with similar issues and it helped them. HE is still struggling a lot with pain regardless of what he is doing. Assessment PT Clinical Summary Patient has shown significant improvement in shoulder ROM. Still presents with some strength deficits and instability of shoulder. Given his objective improvement but subjective struggles I suggested to him a cortisone injection if MD Is in agreement to help break inflammatory cycle now that he is near where he should be objectively with his motion. Patient will benefit from continuation of therapy to emphasis shoulder strength and stabilization following injection. Plan of Care Interventions Electrical Stimulation,Hot Pack/Cold Pack,Manual Therapy,Neuro Re-education,Therapeutic Activities, Therapeutic Exercise PT Services Indicated Yes Treatment Frequency and 1-2x/week for 6 visits Duration These treatments will address the objective and functional deficits as defined above. The patient will be advanced safely and appropriately in order for the patient to progress towards his/her prior level of function. Additional exercises will be introduced and as well as a comprehensive home exercise program upon discharge, if needed, ?to ensure carryover of functional gains achieved in the clinic. This treatment plan has been reviewed and agreement upon by the patient.
--- NOTE | 2024-10-24 07:48 | PTOPDC ---
Assessment and note entered by Chino Salmon, PT Evaluation Information Assessment Status Discharge - Pt Not Present Diagnosis Right shoulder trauma ICD-10 Condition Codes (PT) Pain in right shoulder M25.511 Onset June 2024 Subjective Information Patient last seen in clinic on 09/16/24. Progress note completed and extension requested. Patient has not returned for therapy at this time. Assessment PT Clinical Summary Patient will be discharged from therapy due to lack of presence in clinic. Please refer to last Progress note for discharge status. Plan of Care PT Services Indicated Yes
== END 2024-10-24 08:26 | disposition home or self-care (01) ==
LOC: ANHPT 13:00
PROVIDERS: PCP Internal Medicine; Visit Provider Internal Medicine
DX: M25.519 Pain in unspecified shoulder (principal); G89.11 Acute pain due to trauma
CPT/HCPCS: 97014; 97110; 97140; 97161; G0283

== ENCOUNTER 2024-09-27 09:21 | Outpatient (CLI) | payer MEDICARE, SELFPAY ==
--- NOTE | ~2024-09-27 | CT_ITS ---
EXAMINATION: CT sinus wo con DATE: 09/27/2024 09:39 INDICATION: Nasal obstruction. TECHNIQUE: Computed tomography (CT) of the paranasal sinuses was performed without intravenous contra st. Iterative reconstruction technique was employed. The dose-length product was 416.73 mGy-cm. COMPARISON: None FINDINGS: There is mild mucosal thickening in the frontal sinuses and bilateral ethmoid sinuses. The sphenoid sinuses are clear. There is mild mucosal thickening at the maxillary ostia. The ostiomeatal units are patent. There is leftward deviation of the nasal septum. There is pneumatization of the fanny tical lamina of right middle turbinate. IMPRESSION: 1. Mild mucosal thickening in the paranasal sinuses. 2. Leftward deviation of the nasal septum. Reviewed, dictated and finalized at location A. [employer]
== END 2024-09-27 09:22 | disposition home or self-care (01) ==
LOC: GOSHIMG 09:22
PROVIDERS: PCP Internal Medicine; Visit Provider Otolaryngology
DX: R09.89 Other specified symptoms and signs involving the circulatory and respiratory systems (principal); J34.2 Deviated nasal septum
CPT/HCPCS: 70486